=== PATIENT | male | born 1995 | race Two or more races ===

== ENCOUNTER 2020-06-18 23:08 | Emergency (ER) | payer SELFPAY ==
[~2020-06-18] VITALS: Ht 177.8 cm; Wt 61.2 kg
[2020-06-18 23:21] VITALS: BP 123/64
== END 2020-06-19 01:27 | disposition left against medical advice (07) ==
LOC: ER 23:08
DX: M25.511 Pain in right shoulder (principal); Z53.21 Procedure and treatment not carried out due to patient leaving prior to being seen by health care provider
CPT/HCPCS: 73030; 73060